=== PATIENT | female | born 1995 | race Caucasian/White ===

== ENCOUNTER 2019-03-16 23:07 | Emergency (ER) | payer BC, OTHER ==
[~2019-03-16] VITALS: Ht 157.5 cm; Wt 102.1 kg
[~2019-03-16 23:07] MED LIST: ALBU90OI61 INH; AMOX250 PO; Aviane1 EACH PO; RXSULTRIDS PO; SULTRIDS PO
[2019-03-19 03:06] LABS: HEP B CORE AB, TOT Negative (Negative)
[2019-03-19 05:06] LABS: HCV ANTIBODY <0.1 (0.0-0.9)
[2019-03-19 07:07] LABS: HIV SCREEN 4TH GENERATION WRFX Non Reactive (Non Reactive)
== END 2019-03-17 00:47 | disposition home or self-care (01) ==
LOC: ER 23:07
PROVIDERS: Physician Assistant
DX: Z77.21 Contact with and (suspected) exposure to potentially hazardous body fluids (principal)
CPT/HCPCS: 36415; 84460; 86317; 86704; 86803; 87389; 99283

== ENCOUNTER → 2020-12-09 | Outpatient (CLI) | payer BC, OTHER | LOC: LAB SHORT 14:01 → EDBD 14:01 → PLD 14:01 | DX: R30.0 Dysuria (principal) | CPT/HCPCS: 87086 ==